=== PATIENT | female | born 1975 | race Caucasian/White ===

== ENCOUNTER 2017-01-25 15:56 | Emergency (ER) | payer OTHER ==
[~2017-01-25] VITALS: Ht 177.8 cm; Wt 81.6 kg
[~2017-01-25 15:56] MED LIST: ABILIFY10 MG PO; ABILIFY20 MG PO; ADVIL200 MG PO; ALBUTEROL SULF8.5 GM IH; AMERGE2.5 MG PO; AMOXICILLIN875 MG PO; ATARAX,VISTARIL25 MG PO; ATIVAN0.5 MG PO; ATIVAN2 MG PO; AUGMENTIN875 MG PO; BUTALB-APAP-CA1 EACH PO; CATAPRES0.1 MG PO; CLEOCIN300 MG PO; CLONAZEPAM1 MG PO; CLONAZEPAM2 MG PO; CLOTRIMAZOLE10 MG PO; DIFLUCAN100 MG PO; DILAUDID2 MG PO; DILAUDID4 MG PO; DOXEPIN HCL100 MG PO; DOXEPIN HCL75 MG PO; DULERA 200 MCG/13 GM IH; EFFEXOR75 MG PO; ENDOCET 5-3251 EACH PO; FIORICET 50-301 EACH PO; FIORICET,ESG1 TABLET PO; FLEXERIL10 MG PO; GABAPENTIN800 MG PO; GEODON40 MG PO; GEODON60 MG PO; GEODON80 MG PO; HYDROMORPHONE HC4 MG PO; HYDROXYZINE PA100 MG PO; IMODIUM MS REL1 EACH PO; INDOCIN25 MG PO; KLONOPIN0.5 M1 PO; KLONOPIN1 MG PO; KLONOPIN2 MG PO; LANSOPRAZOLE30 MG PO; LATUDA80 MG PO; LEVOTHYROXINE75 MCG PO; LIDODERM 5% P1 PATCH TD; LUNESTA3 MG PO; MAG-OXIDE400 MG PO; MAGNESIUM OXID400 MG PO; MAGOX 400400 MG PO; MECLIZINE HCL12.5 M1 PO; MELADOX3 MG PO; MELATONIN3 MG PO; MOBIC15 MG PO; MORPHINE SULFAT15 M1 PO; NAPROSYN250 MG PO; NAPROSYN500 MG PO; OXYCODONE HCL E10 MG PO; OXYCODONE HCL15 MG PO; OXYCODONE HCL20 M1; PERCOCET 10/1 TABLET PO; PERCOCET 5/31 TABLET PO; PERIDEX1 ML MM; PRAZOSIN HCL1 MG PO; PROAIR HFA8.5 GM IH; PROBIOTIC1 EAC1 PO; PROBIOTIC1 EACH PO; PROMETHAZINE HC25 M1 PO; Percocet 5/325,Endoc PO; REGLAN10 MG PO; RELPAX40 MG PO; RESTORIL30 MG PO; RITALIN20 MG PO; SAPHRIS10 MG SL; SINEQUAN100 MG PO; STRATTERA60 MG PO; SYNTHROID50 MCG PO; SYNTHROID75 MCG PO; TEMAZEPAM30 MG PO; TOPAMAX100 MG PO; TOPAMAX25 MG PO; TOPAMAX50 MG PO; TOPIRAMATE25 MG PO; TYLENOL WITH C1 EACH PO; VALIUM10 MG PO; VALIUM2 MG PO; VALIUM5 MG PO; VENTOLIN HFA18 GM IH; VIBRAMYCIN100 MG PO; VIIBRYD40 MG PO; VISTARIL50 MG PO; VITAMIN D31000 UNI2 PO; VITAMIN D31000 UNIT PO; VYVANSE60 MG PO; ZALEPLON10 MG PO; ZANAFLEX4 M1 PO; ZANAFLEX4 MG PO; ZANTAC300 MG PO; ZOFRAN4 MG PO; ZYVOX PO
[2017-01-25] MEDS ORDERED: MOTRIN600 MG PO (18:56)
[2017-01-25 19:22] VITALS: BP 125/65
== END 2017-01-25 19:23 | disposition home or self-care (01) ==
LOC: EME 15:56
DX: M94.0 Chondrocostal junction syndrome [Tietze] (principal); Z98.890 Other specified postprocedural states; F17.200 Nicotine dependence, unspecified, uncomplicated; Z88.2 Allergy status to sulfonamides; Z88.5 Allergy status to narcotic agent; Z88.8 Allergy status to other drugs, medicaments and biological substances
CPT/HCPCS: 71020; 99281; 99283

== ENCOUNTER → 2017-03-13 | Outpatient (CLI) | payer MEDICARE, OTHER ==
[~2017-03-13] MED LIST changes: +LMX 530 GM TP; +METHADONE10 MG PO; +METHADONE5 MG PO; +MOTRIN600 MG PO; +MS CONTIN,ORAMO15 M1 PO; +NEURONTIN600 MG PO; +NON-ASPIRIN PA500 M1 PO; +OXYCODONE HCL10 MG PO; +ROXICODONE5 MG PO; +SINEQUAN50 MG PO; +SYNTHROID88 MCG PO
== END | disposition home or self-care (01) ==
LOC: CDC 12:00
DX: Z01.810 Encounter for preprocedural cardiovascular examination (principal); R00.0 Tachycardia, unspecified
CPT/HCPCS: 93000

== ENCOUNTER 2017-03-15 08:21 | Inpatient (IN) | payer OTHER ==
[~2017-03-15] VITALS: Ht 177.8 cm; Wt 80.7 kg
[~2017-03-15 08:21] MED LIST changes: -METHADONE10 MG PO; -METHADONE5 MG PO
[2017-03-15] MEDS ORDERED: METHADONE10 MG PO (09:13)
[2017-03-15] MEDS ORDERED: METHADONE5 MG PO (09:13)
[2017-03-15 09:27] VITALS: BP 107/71
[2017-03-15 19:38] LABS: BASE EXCESS -0.4 mEq/L (-3 to +3); BICARBONATE 25.4 mEq/L (22-26); CARBOXY HGB 2.6 % (0-5); METHEMOGLOBIN 1.5 % (0-1.5); PCO2 46 mm Hg (35-45); PO2 153 mm Hg (80-100); pH 7.35 (7.35-7.45)
[2017-03-15 19:39] LABS: COMMENTS - BLOOD GASES A+C+; DEVICE PB 840; FI02 100 %; MECHANICAL RATE 14 resp/min; MODE AC; PEEP 5 CM/H20; SITE RR; TIDAL VOLUME 450 ML; TOTAL RESP RATE 27 resp/min
[2017-03-15 20:09] LABS: HEMATOCRIT 32.5 % (36.0-46.0); MCH 24.6 PG (29.0-34.0); MCV 76.3 FL (83-99); PLATELET COUNT 332 K/uL (156-360); RBC DIS.WIDTH-CV 18.5 % (11.8-14.6); RBC DIS.WIDTH-SD 51.4 % (39-53); WHITE BLOOD COUNT 9.1 K/uL (4.1-10.2)
[2017-03-15 20:35] LABS: CHLORIDE 110 MEQ/L (99-109); POTASSIUM 4.8 MEQ/L (3.7-5.4); SODIUM 141 MEQ/L (136-147)
[2017-03-15 20:36] LABS: HEMOGLOBIN 10.3 G/DL (11.9-15.5); RED BLOOD COUNT 4.23 M/uL (3.80-5.20)
[2017-03-15 20:41] LABS: CREATININE 0.6 MG/DL (0.6-1.3); GFR ESTIMATE (CALCULATED) > 59 mL/min/; UREA NITROGEN (BUN) 12 mg/dL (9-23)
[2017-03-15 20:47] LABS: GLUCOSE 184 mg/dL (70-99)
[2017-03-15 21:00] VITALS: BP 176/118
[2017-03-15 22:00] VITALS: BP 136/96
[2017-03-15 23:00] VITALS: BP 147/103
[2017-03-16] VITALS (25 sets, daily range): BP systolic 92–154; BP diastolic 52–111
[2017-03-16 05:20] LABS: BASOPHIL (%) 0.1 % (0-1); EOSINOPHIL (%) 0 % (0-5); HEMATOCRIT 32.7 % (36.0-46.0); HEMOGLOBIN 10.2 G/DL (11.9-15.5); IMMATURE GRANULOCYTE (%) 0.7 % (0.0-0.7); LYMPHOCYTE (%) 13.3 % (15-42); LYMPHOCYTE COUNT 1.4 K/uL (1.0-2.8); MCH 23.5 PG (29.0-34.0); MCHC 31.2 G/DL (30.0-36.0); MCV 75.3 FL (83-99); MONOCYTE (%) 5.2 % (3-12); MONOCYTE COUNT 0.6 K/uL (0-0.8); NEUTROPHIL (%) 80.7 % (45-76); NEUTROPHIL COUNT 8.8 K/uL (1.8-6.4); PLATELET COUNT 379 K/uL (156-360); RBC DIS.WIDTH-SD 49.5 % (39-53); RED BLOOD COUNT 4.34 M/uL (3.80-5.20); WHITE BLOOD COUNT 10.9 K/uL (4.1-10.2)
[2017-03-16 05:44] LABS: CHLORIDE 103 MEQ/L (99-109); CREATININE 0.5 MG/DL (0.6-1.3); GFR ESTIMATE (CALCULATED) > 59 mL/min/; GLUCOSE 146 mg/dL (70-99); POTASSIUM 4.4 MEQ/L (3.7-5.4); SODIUM 135 MEQ/L (136-147); UREA NITROGEN (BUN) 10 mg/dL (9-23)
[2017-03-16 17:55] LABS: HEPATITIS C ANTIBODY Nonreactive
[2017-03-16 21:56] LABS: BASE EXCESS 8.2 mEq/L (-3 to +3); CARBOXY HGB 1.2 % (0-5); METHEMOGLOBIN 1.5 % (0-1.5); PCO2 45 mm Hg (35-45)
[2017-03-16 21:57] LABS: BICARBONATE 32.8 mEq/L (22-26); COMMENTS - BLOOD GASES C+; PO2 97 mm Hg (80-100); SITE RR; pH 7.47 (7.35-7.45)
[2017-03-16 21:58] LABS: DEVICE VENT; FI02 40 %; MECHANICAL RATE 14 resp/min; MODE A/C; PEEP 5 CM/H20; TIDAL VOLUME 450 ML; TOTAL RESP RATE 14 resp/min
[2017-03-17] VITALS (19 sets, daily range): BP systolic 0–144; BP diastolic 0–83
[2017-03-18] VITALS (7 sets, daily range): BP systolic 96–118; BP diastolic 53–76
[2017-03-19 03:42] VITALS: BP 100/51
[2017-03-19 08:18] VITALS: BP 101/58
[2017-03-19 11:30] VITALS: BP 107/65
[2017-03-19 15:58] VITALS: BP 133/87
[2017-03-19 19:36] VITALS: BP 102/67
[2017-03-19 23:43] VITALS: BP 107/66
[2017-03-20 04:51] VITALS: BP 117/75
[2017-03-20 07:41] VITALS: BP 108/65
[2017-03-20 11:22] VITALS: BP 94/50
[2017-03-20 16:32] VITALS: BP 125/73
[2017-03-20 19:20] VITALS: BP 98/57
[2017-03-20 23:47] VITALS: BP 108/55
[2017-03-21 03:49] VITALS: BP 111/65
[2017-03-21 08:15] VITALS: BP 114/67
[2017-03-21 11:47] VITALS: BP 116/65
[2017-03-21] MEDS ORDERED: DIFLUCAN200 MG PO (12:40)
[2017-03-21] MEDS ORDERED: ADULT FOLDING1 EACH MC (12:41)
[2017-03-21] MEDS ORDERED: MS CONTIN,ORAMO30 MG PO (19:43)
[2017-03-21] MEDS ORDERED: ROXICODONE15 MG PO (19:44)
[2017-03-21] MEDS ORDERED: LOVENOX30 MG/0.3 SC (19:45)
[2017-03-21] MEDS ORDERED: TYLENOL REGULA325 MG PO ×2 (19:46→19:48)
[2017-03-21] MEDS ORDERED: DULCOLAX10 MG PR (19:46)
[2017-03-21] MEDS ORDERED: METHADONE1 MG/1 ML PO (19:49)
[2017-03-21] MEDS ORDERED: SINEQUAN50 MG PO (19:49)
[2017-03-21] MEDS ORDERED: SENOKOT S,PE1 TABLET PO (19:50)
[2017-03-21] MEDS ORDERED: MILK OF MAGN PO (19:51)
[2017-03-21] MEDS ORDERED: DULCOLAX5 MG PO (19:52)
[2017-03-21] MEDS ORDERED: NEURONTIN600 MG PO (19:53)
[2017-03-21] MEDS ORDERED: VALIUM5 MG PO (19:55)
[2017-03-22] MEDS ORDERED: METHADONE10 MG PO (15:14)
[2017-03-22] MEDS ORDERED: MORPHINE SULFAT15 M1 PO (15:14)
[2017-03-22] MEDS ORDERED: ROXICODONE15 MG PO (15:14)
[2017-03-22] MEDS ORDERED: ZANAFLEX4 M1 PO (15:14)
== END 2017-03-21 16:15 | DRG 454 ==
LOC: 4WEST 08:21 → 2SOUTH 08:21 → ENRESERV 11:33 → 2SOUTH 13:53 → ENRESERV 14:11 → 2SOUTH 20:03 → 4WEST 20:48 → ENRESERV 03-17 13:51 → 3EAST 03-17 15:24
PROVIDERS: Internal Medicine; Neurological Surgery
PROC: 0RG Upper Joints, Fusion (ICD-10-PCS; principal; 2017-03-15)
PROC: 0RG70AJ Fusion of 2 to 7 Thoracic Vertebral Joints with Interbody Fusion Device, Posterior Approach, Anterior Column, Open Approach (ICD-10-PCS; principal; 2017-03-15)
PROC: 0PB10ZZ Excision of 1 to 2 Ribs, Open Approach (ICD-10-PCS; principal; 2017-03-15)
DX: M46.24 Osteomyelitis of vertebra, thoracic region (principal); M54.14 Radiculopathy, thoracic region; M40.204 Unspecified kyphosis, thoracic region; F11.20 Opioid dependence, uncomplicated; G89.29 Other chronic pain; F31.9 Bipolar disorder, unspecified; F20.9 Schizophrenia, unspecified; E03.9 Hypothyroidism, unspecified; F43.10 Post-traumatic stress disorder, unspecified; F60.3 Borderline personality disorder; K58.9 Irritable bowel syndrome, unspecified; Z86.711 Personal history of pulmonary embolism; Z86.14 Personal history of Methicillin resistant Staphylococcus aureus infection; Z87.891 Personal history of nicotine dependence
CPT/HCPCS: 36415; 36600; 71045; 72070; 72100; 76000; 76937; 80048; 80048 91; 80053; 82803; 85014; 85018; 85025; 85027; 85610 GA; 85730 GA; 86803; 86850; 86900; 86901; 86920; 87040; 87070; 87075; 87086 GA; 87102; 87106; 87116; 87205; 87206; 87641; 88305; 93000; 94002; 94799; 95938; 97530 GO; 97530 GP; 99202; C1713; C1753; J0330; J0690; J0696; J1100; J1170; J1450; J1580; J1650; J2250; J2270; J2405; J2704; J2710; J2930; J3010; J3370; J7120; P9016; P9045; S0020; S0028; S0030

== ENCOUNTER 2017-03-21 15:22 | Inpatient (IN) | payer OTHER ==
[~2017-03-21] VITALS: Ht 177.8 cm; Wt 86.4 kg
[~2017-03-21 15:22] MED LIST changes: +ADULT FOLDING1 EACH MC; +DIFLUCAN200 MG PO; +METHADONE10 MG PO; +METHADONE5 MG PO
[2017-03-21 16:42] VITALS: BP 110/66
[2017-03-21] MEDS ORDERED: MS CONTIN,ORAMO30 MG PO (19:43)
[2017-03-21] MEDS ORDERED: ROXICODONE15 MG PO (19:44)
[2017-03-21] MEDS ORDERED: LOVENOX30 MG/0.3 SC (19:45)
[2017-03-21] MEDS ORDERED: DULCOLAX10 MG PR (19:46)
[2017-03-21] MEDS ORDERED: TYLENOL REGULA325 MG PO ×2 (19:46→19:48)
[2017-03-21] MEDS ORDERED: METHADONE1 MG/1 ML PO (19:49)
[2017-03-21] MEDS ORDERED: SINEQUAN50 MG PO (19:49)
[2017-03-21] MEDS ORDERED: SENOKOT S,PE1 TABLET PO (19:50)
[2017-03-21] MEDS ORDERED: MILK OF MAGN PO (19:51)
[2017-03-21] MEDS ORDERED: DULCOLAX5 MG PO (19:52)
[2017-03-21] MEDS ORDERED: NEURONTIN600 MG PO (19:53)
[2017-03-21] MEDS ORDERED: VALIUM5 MG PO (19:55)
[2017-03-22 00:25] VITALS: BP 92/58
[2017-03-22 05:05] VITALS: BP 113/61
[2017-03-22 06:03] LABS: HEMATOCRIT 25.9 % (36.0-46.0); HEMOGLOBIN 7.9 G/DL (11.9-15.5); MCH 24.1 PG (29.0-34.0); MCHC 30.5 G/DL (30.0-36.0); PLATELET COUNT 387 K/uL (156-360); RBC DIS.WIDTH-CV 18.7 % (11.8-14.6); RBC DIS.WIDTH-SD 54.2 % (39-53); RED BLOOD COUNT 3.28 M/uL (3.80-5.20); WHITE BLOOD COUNT 8.7 K/uL (4.1-10.2)
[2017-03-22 06:22] LABS: ALKALINE PHOSPHATASE 256 IU/L (3-129); ALT (GPT) 38 IU/L (3-49); AST (GOT) 28 IU/L (2-34); CHLORIDE 101 MEQ/L (99-109); CREATININE 0.6 MG/DL (0.6-1.3); GFR ESTIMATE (CALCULATED) > 59 mL/min/; GLUCOSE 99 mg/dL (70-99); SODIUM 140 MEQ/L (136-147); TOTAL BILIRUBIN 0.3 MG/DL (0.0-1.0); TOTAL PROTEIN 6.7 G/DL (6.4-8.3); UREA NITROGEN (BUN) 5 mg/dL (9-23)
[2017-03-22] MEDS ORDERED: ROXICODONE15 MG PO (15:14)
[2017-03-22] MEDS ORDERED: MORPHINE SULFAT15 M1 PO (15:14)
[2017-03-22] MEDS ORDERED: METHADONE10 MG PO (15:14)
[2017-03-22] MEDS ORDERED: ZANAFLEX4 M1 PO (15:14)
[2017-03-22 15:59] VITALS: BP 121/73
[2017-03-23 06:41] VITALS: BP 111/61
[2017-03-23] MEDS ORDERED: SYNTHROID88 MCG PO (11:27)
[2017-03-23] MEDS ORDERED: DIFLUCAN200 MG PO (11:27)
[2017-03-23] MEDS ORDERED: SENOKOT S,PE1 TABLET PO (11:27)
[2017-03-23 11:33] LABS: HEPATITIS B SURFACE ANTIGEN Nonreactive; HIV-1/2 AB/AG COMBO Nonreactive
[2017-03-23 15:05] VITALS: BP 116/59
[2017-03-24 05:38] VITALS: BP 105/57
== END 2017-03-24 13:56 | disposition home health service (06) | DRG 945 ==
LOC: 3WEST 15:22
PROVIDERS: Internal Medicine Infectious Disease; Physical Medicine & Rehabilitation Pain Medicine
PROC: F07M0ZZ Range of Motion and Joint Mobility Treatment of Musculoskeletal System - Whole Body (ICD-10-PCS; principal; 2017-03-21)
DX: R53.1 Weakness (principal); R26.2 Difficulty in walking, not elsewhere classified; G89.18 Other acute postprocedural pain; M46.24 Osteomyelitis of vertebra, thoracic region; B37.89 Other sites of candidiasis; D62 Acute posthemorrhagic anemia; E87.1 Hypo-osmolality and hyponatremia; E83.51 Hypocalcemia; F11.20 Opioid dependence, uncomplicated; G89.4 Chronic pain syndrome; E03.9 Hypothyroidism, unspecified; F17.210 Nicotine dependence, cigarettes, uncomplicated; F25.9 Schizoaffective disorder, unspecified; F31.9 Bipolar disorder, unspecified; F60.3 Borderline personality disorder; G43.909 Migraine, unspecified, not intractable, without status migrainosus; K21.9 Gastro-esophageal reflux disease without esophagitis; F43.10 Post-traumatic stress disorder, unspecified; E66.9 Obesity, unspecified; F41.9 Anxiety disorder, unspecified; Z86.010 Personal history of colon polyps; Z86.711 Personal history of pulmonary embolism; Z98.1 Arthrodesis status; Z68.27 Body mass index [BMI] 27.0-27.9, adult; Z88.2 Allergy status to sulfonamides
CPT/HCPCS: 80053; 85027; 85652; 86140; 87340; 87389; 97110 GO; 97530 GP; 99202; J1650

== ENCOUNTER 2017-04-27 15:53 | Emergency (ER) | payer OTHER ==
[~2017-04-27] VITALS: Ht 177.8 cm; Wt 87.0 kg
[~2017-04-27 15:53] MED LIST changes: +DULCOLAX10 MG PR; +DULCOLAX5 MG PO; +LOVENOX30 MG/0.3 SC; +METHADONE1 MG/1 ML PO; +MILK OF MAGN PO; +MS CONTIN,ORAMO30 MG PO; +ROXICODONE15 MG PO; +SENOKOT S,PE1 TABLET PO; +TYLENOL REGULA325 MG PO
[2017-04-27 22:37] VITALS: BP 110/88
== END 2017-04-27 22:37 | disposition home or self-care (01) ==
LOC: EME 15:53
DX: M54.9 Dorsalgia, unspecified (principal); M54.5 Low back pain; M54.2 Cervicalgia; V43.52XA Car driver injured in collision with other type car in traffic accident, initial encounter; Y92.410 Unspecified street and highway as the place of occurrence of the external cause; Z87.442 Personal history of urinary calculi; K21.9 Gastro-esophageal reflux disease without esophagitis; J45.909 Unspecified asthma, uncomplicated; F32.9 Major depressive disorder, single episode, unspecified; F17.200 Nicotine dependence, unspecified, uncomplicated; Z88.2 Allergy status to sulfonamides; Z88.5 Allergy status to narcotic agent; Z98.1 Arthrodesis status; Z88.8 Allergy status to other drugs, medicaments and biological substances; Z79.891 Long term (current) use of opiate analgesic
CPT/HCPCS: 72070; 72100; 99281; 99284

== ENCOUNTER 2017-09-04 22:08 | Emergency (ER) | payer OTHER | END 2017-09-04 22:51 | disposition left against medical advice (07) | LOC: EME 22:08 | DX: M54.5 Low back pain (principal); Z53.21 Procedure and treatment not carried out due to patient leaving prior to being seen by health care provider ==